=== PATIENT | female | born 1935 | race Caucasian/White ===

== ENCOUNTER 2016-04-04 11:51 | Inpatient (IN) | payer OTHER ==
[2016-04-04] MEDS ORDERED: TYLENOL PO PRN (12:15)
[2016-04-04] MEDS ORDERED: NS 1,000 ML IV SCH (12:15)
[2016-04-04] MEDS ORDERED: ZOFRAN IV PRN (12:15)
[2016-04-04] MEDS ORDERED: SOLU-MEDROL IV ONE (14:00)
[2016-04-04] MEDS: DUONEB (A & A) INH SCH ×3 (15:00→22:48)
--- NOTE | 2016-04-04 17:55 | HISTORY AND PHYSICAL ---
PRIMARY CARE PHYSICIAN: Dr. Byron Culver. CHIEF COMPLAINT: Cough, congestion, shortness of breath, myalgias. HISTORY OF PRESENT ILLNESS: A 80-year-old white female with past medical history significant for allergic rhinitis, depression/anxiety, diabetes, hypertension, hypertriglyceridemia, hyperlipidemia, hyperthyroidism, low back pain, migraine headaches, tobacco use, osteoarthritis, and presumed chronic obstructive pulmonary disease presents for evaluation of above-mentioned symptoms. Current history of present illness began approximately 3 days ago. At that time she developed acute onset weakness, cough, and congestion. Over the course of the last 3 days her symptoms have increased. She has become considerably fatigued. She notes both myalgias and arthralgias. She has experienced increasing shortness of breath as well as wheezing. She has had subjective fevers. Because of her progressive symptoms, patient presented to the office for further evaluation and management. Upon arrival, patient was noted to be considerably ill with increased shortness of breath. White blood cell count was noted to be slightly elevated. Her oxygenation at rest was noted to be 90. Patient will be admitted to the hospital for full evaluation and management of a presumed COPD exacerbation. Of note, patient had a sick contact in her son-in-law. Unfortunately, she continues to smoke cigarettes routinely. She has been treated as an outpatient on several occasions recently with presumed chronic obstructive pulmonary disease exacerbation with improvement but not resolution of symptoms. PAST MEDICAL HISTORY: 1. Allergic rhinitis. 2. Bilateral cataracts status post removal in 2014. 3. Colonic diverticulosis but no history of diverticulitis. 4. Depression/anxiety. 5. Diabetes, diet controlled. 6. Hypertension. 7. Hypertriglyceridemia. 8. Hyperlipidemia. 9. History of hyperthyroidism status post radioactive iodine ablation. 10. Chronic low back pain. 11. Migraine headaches. 12. Mitral valve regurgitation. 13. Longstanding tobacco use. 14. Osteoarthritis status post right total knee arthroplasty. 15. Postmenopausal state. 16. Urinary incontinence. CURRENT MEDICATIONS: 1. Aspirin 81 mg daily. 2. Atenolol 25 mg daily. 3. Crestor 10 mg on Sundays and Wednesdays. 4. Dulera 200/5 one puff twice daily as needed. 5. Duloxetine 30 mg 2 tablets in the morning and 1 tablet in the evening. 6. Gabapentin 100 mg 3 times daily. 7. Clonazepam 0.5 mg at bedtime. 8. Lisinopril 2.5 mg daily. 9. ProAir HFA as needed. 10. Triamterene and hydrochlorothiazide 37.5/25 daily. ALLERGIES: PATIENT IS ALLERGIC TO CECLOR WHICH CAUSES A SKIN RASH. SHE IS INTOLERANT OF LIPITOR, TRICOR, WELCHOL, ZOCOR AND PRAVASTATIN WHICH CAUSES MYALGIAS. NIACIN CAUSES FLUSHING. SOCIAL HISTORY: Patient has smoked 1/2 pack per day starting at age 19. She continues to smoke routinely. She denies alcohol or illicit drug use. She enjoys playing the piano and her grandchildren. She exercises intermittently. FAMILY HISTORY: Patient's father passed at age 89 secondary to complications of prostate cancer. Patient's mother passed at age 53 secondary to complications of a motor vehicle accident. REVIEW OF SYSTEMS: A 12-point review of systems was performed. Pertinent positives and negatives noted in history of present illness. PHYSICAL EXAMINATION: VITAL SIGNS: Temperature 99.5 degrees, heart rate 82, respirations 22, blood pressure is 88/60. GENERAL: Ill-appearing with modest increased work of breathing. HEENT: Normocephalic, atraumatic. Pupils equally round, reactive to light. Extraocular muscles intact. Sclerae anicteric. [place] conjunctivae. Oral and nasopharynx clear without exudate. NECK: Supple. No lymphadenopathy. No thyromegaly. No bruits auscultated. CARDIOVASCULAR: Regular rate and rhythm. No significant murmurs, rubs, or gallops. PULMONARY: Diffuse rhonchi and wheezing bilaterally and compromised air movement. ABDOMEN: Soft, nontender, nondistended. Positive bowel sounds. EXTREMITIES: Moves all extremities well. No significant clubbing, cyanosis, or edema. NEUROLOGIC: Cranial nerves 2 through 12 grossly intact. Motor and sensory grossly intact. PSYCHOLOGIC: Examination is appropriate. LABORATORY DATA: White blood cell count 10.6, hemoglobin 14.0, hematocrit 41.5, platelet counts 224,000. ASSESSMENT AND PLAN: A 80-year-old white female with past medical history as noted presents for evaluation of cough, congestion, wheezing, shortness of breath, and weakness. Examination reveals diffuse bronchospasm with compromised air movement. Laboratory data is significant for a slightly elevated white blood cell count of 10.6. O2 saturation is 90% room air. Because of multiple attempts of treatment as an outpatient and lack of full resolution, patient will be admitted to the hospital for full evaluation and management of these conditions. 1. Admit to General Medicine. 2. Acute exacerbation of chronic obstructive pulmonary disease. This is a presumed diagnosis as patient has not been interested in pulmonary function testing in the past. We will treat patient accordingly. We will check sputum cultures and blood cultures. We will start patient on broad-spectrum antibiotics in the form of levofloxacin and azithromycin. We will start Solu-Medrol and DuoNeb. We will encourage incentive spirometry. We will follow her clinical course closely. 3. Hypoxia. As above, at rest patient's O2 saturation was 90%. I suspect with ambulation, this would decrease considerably. We will start patient on oxygen per protocol. We will aggressively manage patient's underlying condition as described above. 4. Profound weakness. This likely is secondary to her underlying acute medical issues. We will treat as above. We will encourage activity as tolerated. 5. Diabetes. At this point patient is diet controlled. With the addition of steroids, I suspect this may become an issue. We will follow patient with patterned Accu-Cheks and sliding scale insulin. 6. Hypotension. Upon arrival the patient actually was hypotensive. We will hold the patient's lisinopril. We will follow her blood pressure closely while hospitalized. We will remain aware that this could be an indication of underlying sepsis. However I suspect this is not the case. 7. Depression/anxiety. We will continue patient on duloxetine and clonazepam therapy. 8. Fluid, electrolytes, nutrition. Will monitor electrolytes. Normal saline at KVO. Diabetic diet. 9. Prophylaxis. Patient will be placed on subcu Lovenox.
[2016-04-04 18:28] LABS: ALLEN TEST YES; BE 4.1 mmoll (-3.0-3.0); BLOOD TYPE ARTERIAL; DRAW SITE R RADIAL; PCO2(98.6) 41 mmHg (35-45); PO2(98.6) 59 mmHg (60-100); SAMPLE BLOOD; SAO2 93.9 % (95.0-100.0); THB 13.6 g/dL (11.5-17.4); pH(98.6) 7.45 (7.35-7.45)
[2016-04-04 18:30] LABS: MODALITY CANNULA
[2016-04-04] MEDS: ZITHROMAX 500 MG/NS 250 ML IV SCH (18:42)
[2016-04-04] MEDS: LOVENOX SUBQ SCH (19:45)
[2016-04-04] MEDS: CYMBALTA PO SCH (20:16)
[2016-04-04] MEDS: LEVAQUIN 250 MG/D5W 50 ML IV SCH (20:16)
[2016-04-04] MEDS: KLONOPIN PO SCH (20:16)
[2016-04-04] MEDS: SOLU-MEDROL IV SCH (23:26)
[2016-04-04] MEDS: HUMALOG SUBQ SCH (23:27)
[2016-04-05] MEDS: DUONEB (A & A) INH SCH ×4 (03:37→14:40)
[2016-04-05] MEDS: HUMALOG SUBQ SCH ×4 (06:15→21:57)
[2016-04-05] MEDS: SOLU-MEDROL IV SCH ×2 (06:16→14:30)
[2016-04-05 06:26] LABS: BASO% 0.2 % (0.0-0.8); HEMATOCRIT 39.6 % (37.0-47.0); IMM GRAN# 0.02 X1000 (0.0-0.04); IMM GRAN% 0.4 % (0.0-0.5); LYMPH# 0.47 X1000 (1.2-3.4); LYMPH% 8.4 % (20.5-51.1); MANUAL DIFF NEEDED? YES; MCH 31.2 PG (27-31); MCHC 32.8 g/dL (33-37); MONO# 0.16 X1000 (0.11-0.59); MONO% 2.9 % (1.7-9.3); MPV 10.5 FL (7.4-10.4); NEUT% 88.1 % (42.2-75.2); PLT 217 X1000 (130-400); RBC 4.17 XMIL (4.2-5.4)
[2016-04-05 06:52] LABS: ALBUMIN 3.6 g/dL (3.5-5.0); CALCIUM 8.5 mg/dL (8.8-10.2); POTASSIUM 3.2 mmol/L (3.5-5.1); TOTAL BILIRUBIN 0.24 mg/dL (0.20-1.00); TOTAL PROTEIN 6.2 g/dL (6.3-8.3)
[2016-04-05 07:11] LABS: BANDS 18 % (0-1); LYMPHS 8 % (21-51); MONO 2 % (1-9)
[2016-04-05] MEDS: NEURONTIN PO SCH ×3 (08:01→17:44)
[2016-04-05] MEDS: ASPIRIN PO SCH (08:01)
[2016-04-05] MEDS: TENORMIN PO SCH (08:02)
[2016-04-05] MEDS: CYMBALTA PO SCH ×2 (08:35→21:56)
[2016-04-05] MEDS: LEVAQUIN 250 MG/D5W 50 ML IV SCH (14:00)
[2016-04-05] MEDS: ZITHROMAX 500 MG/NS 250 ML IV SCH (14:30)
--- NOTE | 2016-04-05 14:32 | Diag Imaging Result Document ---
PROCEDURE NAME: CHEST-2 VIEWS - 04/05/2016 CHEST 2 VIEWS: Compared with 09/01/2012. FINDINGS: Heart size is normal. There is tortuosity of the thoracic aorta similar to the previous exam. There is some atelectasis and/or infiltrate at the left lingula. The remainder of the lungs appear essentially clear. There is no pleural effusion or pneumothorax identified. There is thoracic spondylosis noted. IMPRESSION: Atelectasis and/or infiltrate at left lingula. The possibility of bronchopneumonia cannot be excluded.
[2016-04-05] MEDS: LOVENOX SUBQ SCH (15:36)
[2016-04-05] MEDS: ALBUTEROL NEB INH SCH (20:09)
[2016-04-05] MEDS ORDERED: SOLU-MEDROL IV SCH (21:00)
[2016-04-05] MEDS: KLONOPIN PO SCH (21:56)
[2016-04-06] MEDS: ALBUTEROL NEB INH SCH ×2 (03:48→08:40)
[2016-04-06] MEDS: HUMALOG SUBQ SCH ×4 (06:29→20:22)
[2016-04-06] MEDS: ASPIRIN PO SCH (09:16)
[2016-04-06] MEDS: TENORMIN PO SCH (09:16)
[2016-04-06] MEDS: CYMBALTA PO SCH ×2 (09:17→20:22)
[2016-04-06] MEDS: NEURONTIN PO SCH ×3 (09:17→17:55)
[2016-04-06] MEDS: ZITHROMAX PO SCH (09:19)
[2016-04-06] MEDS ORDERED: TESSALON PO PRN (11:26)
[2016-04-06] MEDS: PREDNISONE PO SCH (15:10)
[2016-04-06] MEDS: LOVENOX SUBQ SCH (15:10)
[2016-04-06] MEDS: DUONEB (A & A) INH SCH ×2 (16:06→20:14)
[2016-04-06] MEDS: KLONOPIN PO SCH (20:22)
[2016-04-06] MEDS: CRESTOR PO SCH (20:22)
[2016-04-07] MEDS: DUONEB (A & A) INH SCH ×2 (03:33→20:05)
[2016-04-07] MEDS: HUMALOG SUBQ SCH ×4 (06:07→22:05)
[2016-04-07] MEDS: PREDNISONE PO SCH ×2 (06:13→09:04)
[2016-04-07] MEDS: LEVAQUIN PO SCH (09:03)
[2016-04-07] MEDS: CYMBALTA PO SCH ×2 (09:03→22:05)
[2016-04-07] MEDS: NEURONTIN PO SCH ×3 (09:03→22:05)
[2016-04-07] MEDS: ASPIRIN PO SCH (09:03)
[2016-04-07] MEDS: ZITHROMAX PO SCH (09:05)
[2016-04-07] MEDS: TENORMIN PO SCH (09:05)
[2016-04-07] MEDS: LOVENOX SUBQ SCH (13:59)
[2016-04-07] MEDS: KLONOPIN PO SCH (22:05)
--- NOTE | 2016-04-07 22:44 | PROGRESS NOTE ---
DATE: 04/07/2016 SUBJECTIVE: The events of patient's weekend were reviewed. In summary, the patient was admitted on Thursday with acute exacerbation of chronic obstructive pulmonary disease and hypoxia. Chest x- ray confirmed an infiltrate versus atelectasis. She was placed on broad-spectrum antibiotics, IV steroids, and bronchodilators. Over the course of the weekend, patient's steroids were tapered. This morning, she was being treated with 20 mg of prednisone twice daily. Her IV antibiotics has been converted to oral. Upon my arrival this morning, patient was noted to have bronchospasm diffusely and fatigue. She continued to have cough intermittent productive of purulent sputum. She denied fevers and chills. Steroid dosage was increased to 60 mg on a 1 time dose. Bronchodilators and oxygen protocol was continued. Throughout the day the patient did achieve some improvement. She continued to require oxygen therapy. At the present time, she states she is feeling improved, although continues to have considerable weakness. She denies fevers, chills, chest discomfort, or palpitations. OBJECTIVE: Vital Signs: T-max 98.7 degrees, heart rate 71-84, respiration rate 18-20, blood pressure 134-159/68-81. General: Appears stated age, in no acute distress. Cardiovascular: Regular rate and rhythm. No significant murmurs, rubs, or gallops. Pulmonary: Mild bronchospasms bilaterally, improved from this morning. Abdomen: Soft, nontender, nondistended. Positive bowel sounds. Extremities: Moves all extremities well. No significant clubbing, cyanosis, or edema. Dermatologic: Evaluation reveals no evidence of rash. LABORATORY DATA: None. ASSESSMENT AND PLAN: 1. Acute exacerbation of chronic obstructive pulmonary disease - As above, patient's steroids were tapered over the weekend. Unfortunately, this appears to have been due too rapid as she has developed rebound bronchospasm. Patient's prednisone was increased back to 60 mg daily. She tolerated this well. Her bronchospasm has improved. Should patient continue to do well over the next 24 hours, we will consider discharge home with a prednisone taper. We will plan to prescribe nebulizers at home. We will follow this closely. 2. Hypoxia - We attempted to titrate patient off oxygen therapy while hospitalized today. Unfortunately, this proved unsuccessful. Should patient continue to require oxygen supplementation, we will plan to order this for home use in the a.m. 3. Presumed community acquired pneumonia - The patient's chest x-ray suggested an infiltrate versus atelectasis. At this point, I do feel broad-spectrum antibiotics continue to be warranted. We will resume levofloxacin therapy. We will continue azithromycin. We will treat bronchospasm as noted. 4. Profound weakness - This is significant. Physical Therapy was consulted today. The patient did reasonably well with therapy. We will continue this. 5. Diabetes - Patient's blood sugars have increased with associated steroid use. We will continue sliding scale insulin. 6. Hypotension - The patient has achieved improvement while hospitalized. We will continue to hold her antihypertensive agent and resume as her blood pressure dictates. 7. Depression/anxiety - We will continue duloxetine and clonazepam therapy. 8. Disposition - At this point, the patient continues to require shelter care in the hospital setting. Patient will be discharged home once appropriate.
[2016-04-08] MEDS: DUONEB (A & A) INH SCH ×4 (03:45→20:20)
[2016-04-08] MEDS: HUMALOG SUBQ SCH ×4 (06:41→20:57)
--- NOTE | 2016-04-08 09:36 | Diag Imaging Result Document ---
PROCEDURE NAME: CHEST-2 VIEWS - 04/08/2016 TWO VIEWS OF THE CHEST: FINDINGS: The lungs are better expanded and the atelectasis, which was previously present in the lingula on 04/05/2016, is diminished in comparison with the previous study. No additional abnormalities are present. IMPRESSION: Improved atelectasis.
[2016-04-08] MEDS: PREDNISONE PO SCH (09:54)
[2016-04-08] MEDS: NEURONTIN PO SCH ×3 (09:55→20:57)
[2016-04-08] MEDS: ASPIRIN PO SCH (09:55)
[2016-04-08] MEDS: LEVAQUIN PO SCH (09:55)
[2016-04-08] MEDS: TENORMIN PO SCH (09:55)
[2016-04-08] MEDS: ZITHROMAX PO SCH (09:56)
[2016-04-08] MEDS: CYMBALTA PO SCH ×2 (09:57→20:57)
[2016-04-08] MEDS: LOVENOX SUBQ SCH (14:38)
[2016-04-08] MEDS: KLONOPIN PO SCH (20:57)
--- NOTE | 2016-04-08 21:30 | PROGRESS NOTE ---
DATE: 04/08/2016 SUBJECTIVE: Patient was originally seen this morning. The patient had just experienced a choking episode while eating breakfast. Patient was noted to have significant bronchospasm on examination. Overnight, she had done reasonably well. She denied fevers, chills, nausea, and vomiting. Over the course of the day, the patient's overall condition very slowly improved. Upon evaluation this evening, she continues to have intermittent bronchospasm. She did walk with Physical Therapy. She continues to require oxygen therapy to maintain adequate saturations with ambulation. She is tolerating bronchodilators reasonably well. OBJECTIVE: Vital Signs: T-max 98.3 degrees, heart rate 68-73, respirations 14-20, blood pressure 105-169/60-93. General: Well-nourished, well-developed, in no acute distress. Cardiovascular: Regular rate and rhythm. No significant murmurs, rubs, or gallops. Pulmonary: Bilateral wheezing, adequate air movement. Abdomen: Soft, nontender, nondistended. Positive bowel sounds. Extremities: Moves all extremities well. No significant clubbing, cyanosis, or edema. Dermatologic: Evaluation reveals no evidence of rash. LABORATORY DATA: None. ASSESSMENT AND PLAN: 1. Acute exacerbation of chronic obstructive pulmonary disease - The patient continues to very slowly improve. At this point, we will continue on high-dose oral steroids. We will continue bronchodilators every 4 hours. Should she continue to improve, we will consider discharge home in the a.m. 2. Hypoxia - Unfortunately, this persists. We will plan discharge home with oxygen therapy once arrangements have been made. 3. Community-acquired pneumonia - Patient's chest x-ray today suggests improvement. We will continue broad-spectrum antibiotics in the form of levofloxacin and azithromycin therapy. 4. Profound weakness - The patient has significant disease. She walked with Physical Therapy today. She will require physical therapy at time of discharge. We will follow this as well. 5. Diabetes - The patient's blood sugars have been elevated associated with steroid use. We will continue sliding scale insulin. 6. Hypotension - Patient has achieved resolution. We will continue to follow serial blood pressure evaluations and consider resuming home medications. 7. Depression/anxiety - We will continue fluoxetine and clonazepam daily. 8. Disposition - At this point, patient continues to require [facility] care in a hospital setting. We will plan to discharge home once appropriate.
[2016-04-09] MEDS: DUONEB (A & A) INH SCH ×5 (03:15→23:18)
[2016-04-09] MEDS: HUMALOG SUBQ SCH ×4 (06:11→20:28)
[2016-04-09] MEDS: ASPIRIN PO SCH (10:07)
[2016-04-09] MEDS: LEVAQUIN PO SCH (10:08)
[2016-04-09] MEDS: CYMBALTA PO SCH ×2 (10:10→20:25)
[2016-04-09] MEDS: ZITHROMAX PO SCH (10:10)
[2016-04-09] MEDS: PREDNISONE PO SCH (10:11)
[2016-04-09] MEDS: NEURONTIN PO SCH ×3 (10:12→17:32)
[2016-04-09] MEDS: TENORMIN PO SCH (10:12)
--- NOTE | 2016-04-09 15:00 | Diag Imaging Result Document ---
PROCEDURE NAME: CT THORAX W/O CONTRAST - 04/09/2016 CT CHEST WITHOUT CONTRAST. DOSE REDUCTION PROTOCOL: COMPARISON: 08/29/2014. FINDINGS: No pleural effusions. Borderline mildly prominent heart. No thoracic aortic aneurysm although there is moderate atherosclerosis. No enlarged mediastinal or hilar lymph nodes. There are bilateral ground glass infiltrates. No consolidation. No bronchiectasis. Likely atelectasis or fibrosis in the left base. There is a small hiatal hernia. IMPRESSION: 1. Development of multifocal small ground glass infiltrates. 2. Tiny hiatal hernia.
[2016-04-09] MEDS: LOVENOX SUBQ SCH (15:02)
[2016-04-09] MEDS: SOLU-MEDROL IV SCH ×2 (15:16→23:00)
--- NOTE | 2016-04-09 15:27 | PROGRESS NOTE ---
DATE: 04/09/2016 SUBJECTIVE: Patient was originally seen this morning. She continued to have some bronchospasm on examination. She continued to have significant weakness. The patient was continued on prednisone and nebulizers. This afternoon, unfortunately, her condition continues to remain borderline. She has intermittent wheezing and audible rhonchi. Her energy level is very low. She is concerned that this has worsened since choking yesterday morning with breakfast. She continues to require oxygen therapy to maintain adequate saturations. She denies fevers, chills, nausea, vomiting or chest discomfort. OBJECTIVE: Vital Signs: T-max 98.6 degrees, heart rate 61-75, respirations 16-24, blood pressure 142-163/75-124. General: Well-nourished, well-developed female with audible rhonchi noted. Cardiovascular: Regular rate and rhythm. No significant murmurs, rubs, or gallops. Pulmonary: Bilateral wheezing. Reasonable air movement. Abdomen: Soft, nontender, nondistended. Positive bowel sounds. Extremities: Moves all extremities well. No significant clubbing, cyanosis, or edema. Dermatologic: Evaluation reveals no evidence of rash. LABORATORY DATA: None. ASSESSMENT AND PLAN: 1. Acute exacerbation of chronic obstructive pulmonary disease-unfortunately, patient continues to have considerable symptoms. Patient is concerned that this was exacerbated after choking on breakfast yesterday morning. Despite aggressive oral management, wheezing and rhonchi persists. Patient will be transitioned back from prednisone to Solu-Medrol. We will continue bronchodilators. We will check a CT scan of the chest to confirm no additional anatomic abnormalities are identified. We will follow this. 2. Hypoxia-patient continues to require oxygen therapy to maintain adequate saturations. We will continue per protocol. 3. Community acquired pneumonia-as of last chest x-ray, this appears to have improved. Because of her declining condition, we will check a CT scan of the chest today. 4. Profound weakness-we will continue physical therapy. 5. Diabetes-the patient's blood sugars have been elevated, largely secondary to steroids. We will continue sliding scale insulin. 6. Hypotension-patient's condition has resolved. We will resume lisinopril therapy in the morning. 7. Depression/anxiety-we will continue fluoxetine and clonazepam therapy. 8. Disposition-at this point, patient continues to require long-term care in the hospital setting. We will plan discharge home once appropriate.
[2016-04-09] MEDS: CRESTOR PO SCH (20:25)
[2016-04-09] MEDS: KLONOPIN PO SCH (20:47)
[2016-04-10] MEDS: DUONEB (A & A) INH SCH ×6 (03:30→23:35)
[2016-04-10 06:10] LABS: BASO% 0.2 % (0.0-0.8); HEMATOCRIT 42.4 % (37.0-47.0); IMM GRAN# 0.14 X1000 (0.0-0.04); IMM GRAN% 1.2 % (0.0-0.5); LYMPH# 1.14 X1000 (1.2-3.4); LYMPH% 9.7 % (20.5-51.1); MANUAL DIFF NEEDED? YES; MCV 93.8 FL (81-99); MONO# 0.32 X1000 (0.11-0.59); MONO% 2.7 % (1.7-9.3); MPV 10.2 FL (7.4-10.4); NEUT% 86.2 % (42.2-75.2); PLT 281 X1000 (130-400); RBC 4.52 XMIL (4.2-5.4)
[2016-04-10] MEDS: SOLU-MEDROL IV SCH ×4 (06:21→22:22)
[2016-04-10] MEDS: HUMALOG SUBQ SCH ×4 (06:24→20:44)
[2016-04-10 06:37] LABS: BANDS 1 % (0-1); LYMPHS 8 % (21-51); MONO 3 % (1-9)
[2016-04-10 06:51] LABS: ALBUMIN 3.2 g/dL (3.5-5.0); CALCIUM 9.6 mg/dL (8.8-10.2); POTASSIUM 4.2 mmol/L (3.5-5.1); TOTAL BILIRUBIN 0.33 mg/dL (0.20-1.00); TOTAL PROTEIN 6.5 g/dL (6.3-8.3)
[2016-04-10] MEDS: LEVAQUIN PO SCH (09:26)
[2016-04-10] MEDS: TENORMIN PO SCH (09:26)
[2016-04-10] MEDS: CYMBALTA PO SCH ×2 (09:26→20:43)
[2016-04-10] MEDS: ASPIRIN PO SCH (09:26)
[2016-04-10] MEDS: PRINIVIL PO SCH (09:26)
[2016-04-10] MEDS: NEURONTIN PO SCH ×4 (09:26→17:44)
[2016-04-10] MEDS: LOVENOX SUBQ SCH (15:22)
[2016-04-10] MEDS: KLONOPIN PO SCH (20:43)
[2016-04-10] MEDS: DULERA 200 MCG/5 MCG INHALER INH SCH ×2 (20:43→22:23)
--- NOTE | 2016-04-10 21:03 | PROGRESS NOTE ---
DATE: 04/10/2016 SUBJECTIVE: Patient was originally seen this morning. At that time, patient states she had rested well overnight. She continued to have some cough and congestion. She continued to have considerable weakness. Over the course of the day, patient did briefly well with exception of this evening. At that time, patient states she had an additional episode of choking. Since that time, she has had increased cough as well as increased wheezing. She denies fevers or chills at present time. She continues to require supplemental oxygen to maintain adequate saturations. OBJECTIVE: Temperature maximum 98.7, heart rate 60-81, respirations 16-20, blood pressure 140- 168/68-86. General: Well nourished, well developed, no acute distress. Cardiovascular: Regular rate and rhythm. No significant murmurs, rubs, or gallops. Pulmonary: Intermittent wheezing bilaterally. Abdomen: Soft, nontender, nondistended. Positive bowel sounds. Extremities: Moves all extremities well. No significant clubbing, cyanosis, or edema. Dermatologic: Evaluation reveals no evidence of rash. LABORATORY DATA: White blood cell count 11.78, hemoglobin 14.2, hematocrit 42.4, platelet counts 281,000. Sodium 134, potassium 4.2, chloride 95, bicarb 25, BUN 29, creatinine 1.1, glucose 215, calcium 9.6, total bilirubin 0.33. Total protein 6.5, albumin 3.2, alkaline phosphatase 51, AST 13, ALT 17. ASSESSMENT AND PLAN: 1. Acute exacerbation of chronic obstructive pulmonary disease-unfortunately, patient continues to have moderate wheezing. Computed tomography scan suggested multifocal ground-glass opacities consistent with pneumonia. We will continue the patient on bronchodilators and steroid therapy. We will adjust antibiotics as described below. We will follow patient's clinical course closely. 2. Hypoxia-patient continues to require supplemental oxygen therapy to maintain adequate saturations. We will continue patient on oxygen per protocol. 3. Community-acquired pneumonia-patient is being treated with Levaquin and azithromycin therapy. Because of the concern for aspiration, we will discontinue azithromycin and start the patient on clindamycin. We will follow this. 4. Profound weakness-patient is slowly improving. We will continue physical therapy. 5. Diabetes-the patient's blood sugars have been elevated secondary to steroids. We will continue sliding scale insulin. 6. Hypotension-patient has achieved resolution. We will follow the patient's blood pressure closely. 7. Depression/anxiety-we will continue fluoxetine and clonazepam therapy. 8. Disposition-at this point, patient continues to require [facility] care in a hospital setting. The patient will be discharged home once appropriate.
[2016-04-10] MEDS: CLEOCIN PO SCH (22:27)
[2016-04-11] MEDS: DUONEB (A & A) INH SCH ×6 (03:25→23:50)
[2016-04-11] MEDS: CLEOCIN PO SCH ×3 (06:04→20:50)
[2016-04-11] MEDS: SOLU-MEDROL IV SCH ×3 (06:04→20:53)
[2016-04-11] MEDS: HUMALOG SUBQ SCH ×4 (06:09→20:51)
[2016-04-11] MEDS: NEURONTIN PO SCH ×3 (09:31→18:56)
[2016-04-11] MEDS: LEVAQUIN PO SCH (09:31)
[2016-04-11] MEDS: PRINIVIL PO SCH (09:31)
[2016-04-11] MEDS: TENORMIN PO SCH (09:31)
[2016-04-11] MEDS: ASPIRIN PO SCH (09:33)
[2016-04-11] MEDS: CYMBALTA PO SCH ×2 (09:37→20:50)
[2016-04-11] MEDS: LOVENOX SUBQ SCH (13:43)
[2016-04-11] MEDS: DULERA 200 MCG/5 MCG INHALER INH SCH ×2 (16:11→23:00)
[2016-04-11] MEDS: KLONOPIN PO SCH (20:50)
--- NOTE | 2016-04-11 20:51 | PROGRESS NOTE ---
DATE: 04/11/2016 SUBJECTIVE: The patient was originally evaluated this morning. At that time, patient noted some improvement. Throughout the course of the day, patient was continued on antibiotics, bronchodilators, and IV steroids. This evening, she continues to do reasonably well. She continues to complain of some cough, congestion, and wheezing. She continues to have considerable weakness. She denies fevers, chills, nausea, and vomiting. OBJECTIVE: Vital signs: T-max 98.6 degrees, heart rate 74-80, respirations 14-18, blood pressure 140 to 187 over 84 to 96. General: Well nourished, well developed, no acute distress. Cardiovascular: Regular rate and rhythm. No significant murmurs, rubs, or gallops. Pulmonary: Intermittent wheezing, worse on the right. Reasonable air movement. Abdomen: Soft, nontender, nondistended. Positive bowel sounds. Extremities: Moves all extremities well. No significant clubbing, cyanosis, or edema. Dermatologic: Evaluation reveals no evidence of rash. LABORATORY DATA: None. ASSESSMENT AND PLAN: 1. Acute exacerbation of chronic obstructive pulmonary disease. Unfortunately, patient has not completely cleared for her bronchospasms. For now, we will continue aggressive management with IV steroids, bronchodilators, and antibiotic therapy. We will follow patient's clinical course closely. 2. Community-acquired pneumonia versus aspiration. We will continue levofloxacin therapy. Clindamycin was added last night. We will follow this. 3. Hypoxia. We will continue oxygen per protocol. 4. Profound weakness. Patient is slowly improving. We will continue physical therapy. 5. Diabetes. Patient's blood sugars are largely elevated secondary to steroids. We will continue sliding scale insulin. 6. Depression/anxiety. We will continue patient on home medications. 7. Disposition. At this point, patient continues to require longterm care in a hospital setting. Should patient's condition continue to improve, we will start steroid taper in the morning with plans to discharge home in the near future.
[2016-04-12] MEDS: SOLU-MEDROL IV SCH ×4 (01:13→20:43)
[2016-04-12] MEDS: DUONEB (A & A) INH SCH ×6 (03:20→22:51)
[2016-04-12] MEDS: CLEOCIN PO SCH ×3 (06:16→20:44)
[2016-04-12] MEDS: HUMALOG SUBQ SCH ×4 (06:16→20:45)
[2016-04-12] MEDS: DULERA 200 MCG/5 MCG INHALER INH SCH ×2 (08:51→19:48)
[2016-04-12] MEDS: LEVAQUIN PO SCH (09:10)
[2016-04-12] MEDS: CYMBALTA PO SCH ×2 (09:10→20:44)
[2016-04-12] MEDS: PRINIVIL PO SCH (09:10)
[2016-04-12] MEDS: NEURONTIN PO SCH ×3 (09:11→16:50)
[2016-04-12] MEDS: TENORMIN PO SCH (09:11)
[2016-04-12] MEDS: ASPIRIN PO SCH (09:12)
--- NOTE | 2016-04-12 12:36 | PROGRESS NOTE ---
DATE: 04/12/2016 SUBJECTIVE: The patient continues to very slowly improve. She states her shortness of breath has decreased over the last 24 hours. Her cough, congestion, wheezing, also has shown improvement. She is tolerating p.o. reasonably well. Her energy level is low, but it is improving. She denies fevers, chills, nausea or vomiting. OBJECTIVE: Vital Signs: T-max 98.5 degrees, heart rate 73-90, respirations 16-20, blood pressure 140-191/75-90. General: Well nourished, well developed, no acute distress. Cardiovascular: Regular rate and rhythm. No significant murmurs, rubs, or gallops. Pulmonary: Minimal wheezing in the right upper lung field. Adequate air movement. Abdomen: Soft, nontender, nondistended. Positive bowel sounds. Extremities: Moves all extremities well. No significant clubbing, cyanosis, or edema. Dermatologic: Evaluation reveals no evidence of rash. LABORATORY DATA: None. ASSESSMENT AND PLAN: 1. Acute exacerbation of chronic obstructive pulmonary disease-today, this is the best her lungs have sounded. She has minimal wheezing in the right upper lung field. We will begin a steroid taper. We will continue bronchodilators, antibiotics and aspiration precautions. 2. Community-acquired pneumonia versus aspiration pneumonia-the patient is being treated with both levofloxacin and clindamycin. Her symptoms are improving. She is being treated with aspiration precautions. 3. Hypoxia-we will continue the patient on oxygen per protocol. 4. Profound weakness-as noted above, patient is slowly improving. We will continue physical therapy. 5. Diabetes-the patient has experienced increasing blood sugars associated with steroid use. We will continue sliding scale insulin. 6. Depression/anxiety-we will continue patient on home medications. 7. Hypertension-patient's blood pressure is elevated. We will resume all home medications at this point. 8. Disposition-at this point, patient continues to require correction care in the hospital setting. I anticipate the patient will be prepared for discharge home in the very near future, within the next 24-48 hours.
[2016-04-12] MEDS: LOVENOX SUBQ SCH (13:20)
[2016-04-12] MEDS: DYAZIDE PO SCH (13:30)
[2016-04-12] MEDS: KLONOPIN PO SCH (20:45)
[2016-04-13] MEDS: SOLU-MEDROL IV SCH ×2 (02:57→06:22)
[2016-04-13] MEDS: DUONEB (A & A) INH SCH ×3 (03:59→11:48)
[2016-04-13] MEDS: HUMALOG SUBQ SCH (06:22)
[2016-04-13] MEDS: CLEOCIN PO SCH (06:22)
[2016-04-13] MEDS: DULERA 200 MCG/5 MCG INHALER INH SCH (08:37)
[2016-04-13] MEDS: TENORMIN PO SCH (09:23)
[2016-04-13] MEDS: NEURONTIN PO SCH (09:24)
[2016-04-13] MEDS: DYAZIDE PO SCH (09:24)
[2016-04-13] MEDS: ASPIRIN PO SCH (09:24)
[2016-04-13] MEDS: LEVAQUIN PO SCH (09:25)
[2016-04-13] MEDS: PRINIVIL PO SCH (09:25)
[2016-04-13] MEDS: CYMBALTA PO SCH (09:26)
[2016-04-13] MEDS ORDERED: PREDNISONE PO ONE (10:37)
[2016-04-13 11:15] VITALS: BP 136/90
--- NOTE | 2016-04-13 23:00 | DISCHARGE SUMMARY ---
ADMISSION DATE: 04/04/2016 DISCHARGE DATE: 04/13/2016 ADMISSION DIAGNOSIS: 1. Cough. 2. Congestion. 3. Shortness of breath. 4. Myalgias. DISCHARGE DIAGNOSES: 1. Acute exacerbation of chronic obstructive pulmonary disease. 2. Community-acquired pneumonia versus aspiration pneumonia. 3. Hypoxia. 4. Profound weakness, improving. 5. Diabetes, exacerbated by steroid use. 6. Depression/anxiety, present on arrival. 7. Hypertension, present on arrival. CONSULTATIONS: None. PROCEDURES: A CT of the chest was performed on 04/09/16 which revealed development of multifocal small ground glass infiltrates. Tiny hiatal hernia. HISTORY AND PHYSICAL EXAMINATION: See admit note. HOSPITAL COURSE: Patient was admitted as per history and physical examination. Hospital course per condition is as follows: 1. Acute exacerbation of chronic obstructive pulmonary disease-the patient was admitted with diffuse bronchospasm and shortness of breath. Patient was started on broad-spectrum antibiotics, bronchodilators, and IV steroids. A taper was initiated soon after hospitalization, but unfortunately proved ineffective. Patient's steroids were resumed at a high dose. With time, patient's overall condition improved. At time of discharge, patient was wheeze free. Patient will be discharged home with a prednisone taper. Her community- acquired pneumonia will be treated as described below. We will prescribe DuoNeb to be used every 4 hours while awake. I have encouraged patient to discontinue tobacco habit. She understands that resuming this habit will likely result in future hospitalizations. 2. Community-acquired pneumonia versus aspiration pneumonia-initially, patient was treated with broad-spectrum antibiotics, most consistent with treatment for community-acquired pneumonia. With a prolonged recovery, aspiration coverage was added in the form of clindamycin. With this and with increasing steroids, her overall condition ultimately improved. The patient will complete 5 additional days of levofloxacin and clindamycin therapy. This, too, will be followed as an outpatient. 3. Hypoxia-upon admission, patient was noted to have considerable hypoxia. She required oxygenation throughout hospitalization. She will be discharged home with oxygen therapy. I have encouraged patient to maintain an oxygen saturation above 88%. We will hope and anticipate a titration down with time. 4. Profound weakness-patient was treated with physical therapy while hospitalized. At present time, her energy level is reasonably controlled. 5. Diabetes-the patient has underlying disease. With initiation of steroid therapy, she experienced increasing blood sugars. She was covered with sliding scale insulin. The patient will be discharged home without sliding scale insulin with anticipation that with improvement decreased steroids, her blood sugars will improve. She is to follow her blood sugars closely as an outpatient. 6. Depression/anxiety-patient was continued on home medications with adequate response. 7. Hypertension-patient's blood pressure initially was low upon admission. With time, blood pressure recovered. Patient will be discharged home with her home medications. DISCHARGE CONDITION: Good. DISPOSITION: Discharged to home. MEDICATIONS: 1. Acetaminophen 650 mg every 4 hours as needed. 2. DuoNeb 1 neb every 4 hours while awake. 3. Aspirin 81 mg daily. 4. Atenolol 25 mg daily. 5. Clindamycin 300 mg every 8 hours for 5 days. 6. Clonazepam 0.5 mg at bedtime. 7. Duloxetine 60 mg in the morning and 30 mg in the evening. 8. Gabapentin 100 mg 3 times daily. 9. Lisinopril 2.5 mg daily. 10. Levofloxacin 500 mg daily for 5 days. 11. Dulera 200/5, 2 puffs twice daily. 12. Rosuvastatin 10 mg daily as tolerated. 13. Triamterene and hydrochlorothiazide daily. FOLLOWUP: Patient to follow with me in approximately 1 week.
--- NOTE | 2016-05-22 02:02 | DISCHARGE SUMMARY ---
ADMISSION DATE: 04/04/2016 DISCHARGE DATE: 04/13/2016 DISCHARGE SUMMARY ADDENDUM: While hospitalized, the patient was admitted with a COPD exacerbation and underlying hypoxia. The patient's symptoms met criteria for underlying acute respiratory failure. With aggressive management, however, we achieved improvement while hospitalized and with outpatient treatment.
--- NOTE | 2016-05-22 02:04 | DISCHARGE SUMMARY ---
ADMISSION DATE: 04/04/2016 DISCHARGE DATE: 04/13/2016 DISCHARGE SUMMARY ADDENDUM: The patient was admitted with pneumonia with associated fevers, 18% banded neutrophils were noted on admission. I cannot further classify this as sepsis due to pneumonia. We can classify this as signs and symptoms of pneumonia, localized only.
== END 2016-04-13 13:01 | disposition home or self-care (01) | DRG 177 ==
LOC: DIRADM 11:51 → 4N 13:20
PROVIDERS: ADMIT Internal Medicine; ATTEND Internal Medicine
DX: J69.0 Pneumonitis due to inhalation of food and vomit (principal); J96.01 Acute respiratory failure with hypoxia; I95.9 Hypotension, unspecified; I34.0 Nonrheumatic mitral (valve) insufficiency; E11.9 Type 2 diabetes mellitus without complications; J44.1 Chronic obstructive pulmonary disease with (acute) exacerbation; J44.0 Chronic obstructive pulmonary disease with (acute) lower respiratory infection; E05.90 Thyrotoxicosis, unspecified without thyrotoxic crisis or storm; I10 Essential (primary) hypertension; E78.5 Hyperlipidemia, unspecified; E78.1 Pure hyperglyceridemia; J30.9 Allergic rhinitis, unspecified; N95.9 Unspecified menopausal and perimenopausal disorder; F41.8 Other specified anxiety disorders; F17.210 Nicotine dependence, cigarettes, uncomplicated; Z79.899 Other long term (current) drug therapy; Z79.82 Long term (current) use of aspirin; Z80.42 Family history of malignant neoplasm of prostate
CPT/HCPCS: 71020; 71250; 80053; 82805; 82948; 85025; 87040; 87070; 87205; 94640; 94760; 94761; 94799; J0456; J1650; J1815; J2920; J2930; J7030; J7512; 97116-GP; 97530-GP